=== PATIENT | male | born 1980 | race African-American/Black ===

== ENCOUNTER 2018-01-14 11:32 | Emergency (ER) | payer SELFPAY ==
[~2018-01-14] VITALS: Ht 190.5 cm; Wt 82.0 kg
[2018-01-14 11:41] VITALS: BP 129/60
== END 2018-01-14 12:36 | disposition left against medical advice (07) ==
LOC: ER 12:33
DX: Z53.21 Procedure and treatment not carried out due to patient leaving prior to being seen by health care provider (principal)